=== PATIENT | male | born 1985 | race Caucasian/White ===

== ENCOUNTER 2017-05-17 17:47 | Emergency (ER) | payer SELFPAY ==
[~2017-05-17] VITALS: Ht 175.3 cm; Wt 93.0 kg
[~2017-05-17 17:47] MED LIST: CEPH500 PO; Flonase 0.05% N16 GM; HYDACE5 PO
[2017-05-17] MEDS ORDERED: Omeprazole20 M1 (18:58)
== END 2017-05-17 19:00 | disposition left against medical advice (07) ==
LOC: ER 17:47
DX: Z53.21 Procedure and treatment not carried out due to patient leaving prior to being seen by health care provider (principal)

== ENCOUNTER 2023-07-16 10:09 | Day surgery (SDC) | payer BC ==
[~2023-07-16] VITALS: Ht 175.3 cm; Wt 94.1 kg
[~2023-07-16 10:09] MED LIST changes: +Lactated Ringer's 1,000 ML IV ONE; +Midazolam HCl 1MG / ML 2ML Vial ONE; +Omeprazole20 M1; +Ropivacaine 0.5% HCl/Pf 5 MG/ML 20ML VIAL ONE; +propofoL 0 ML IV ONE
[2023-07-16] MEDS ORDERED: CYCL10 (10:26)
[2023-07-16] MEDS ORDERED: CeFAZolin Sodium 2,000 MG VIAL ONE (10:37)
[2023-07-16] MEDS ORDERED: NS 50 ML IV ONE (10:38)
[2023-07-16] MEDS ORDERED: Lactated Ringer's 1,000 ML IV ONE (10:42)
[2023-07-16] MEDS ORDERED: EPINEPhrine HCl 1 MG/ML 1ML Amp XX ONE (11:08)
--- NOTE | 2023-07-16 11:12 | NUR ---
07/16/23 1112 Rosa Neumann 20ML OF ROPIVACAINE 0.5% MIXED AND VERIFIED WITH 0.1ML OF EPI (1MG/ML) TO MAKE ROPIVACAINE 0.5% WITH EPI 1:200,000 FOR INJECTION AT OPSITE BY DR LOPEZ.
[2023-07-16 11:53] VITALS: BP 139/97
--- NOTE | 2023-07-16 12:18 | NUR ---
07/16/23 1218 BARON MONTE PT HAD NO SEDATION ONLY A LOCAL FOR FINGER MASS EXCISION.
== END 2023-07-16 12:18 | disposition home or self-care (01) ==
LOC: ORSCSDS 10:09
PROVIDERS: Orthopaedic Surgery Sports Medicine
PROC: 0JBK0ZX Excision of Left Hand Subcutaneous Tissue and Fascia, Open Approach, Diagnostic (ICD-10-PCS; principal; 2023-07-16 11:30)
DX: M79.89 Other specified soft tissue disorders (principal); Z79.899 Other long term (current) drug therapy
CPT/HCPCS: 88305; J0171; J0690; J2250; J2704; J2795; J7120

== ENCOUNTER → 2023-09-12 | Outpatient (CLI) | payer BC ==
[~2023-09-12] MED LIST changes: +CYCL10; -Lactated Ringer's 1,000 ML IV ONE; -Midazolam HCl 1MG / ML 2ML Vial ONE; -Ropivacaine 0.5% HCl/Pf 5 MG/ML 20ML VIAL ONE; -propofoL 0 ML IV ONE
== END ==
LOC: LAB SHORT 13:50 → LAB 13:50
DX: L72.3 Sebaceous cyst (principal)
CPT/HCPCS: 88305